=== PATIENT | male | born 1960 | race Caucasian/White ===

== ENCOUNTER 2019-03-22 08:07 | Day surgery (SDC) | payer BC ==
[~2019-03-22] VITALS: Ht 165.1 cm; Wt 93.0 kg
[~2019-03-22 08:07] MED LIST: ACET325T14 PO; IBUP200T64 PO; MULT-658 PO; ZOLP10TA PO; vitamin c PO
[2019-03-22] MEDS ORDERED: MIDAZOLAM 1 MG/ML, 2ML ONE (09:03)
[2019-03-22] MEDS ORDERED: FENTANYL PF 250 MCG/5ML ONE ×3 (09:04→12:16)
[2019-03-22] MEDS ORDERED: LACTATED RINGERS 1,000 ML IV SCH (09:04)
[2019-03-22] MEDS ORDERED: ROCURONIUM 10MG/ML,5ML ONE ×2 (09:07→12:31)
[2019-03-22] MEDS ORDERED: PROPOFOL 10 MG/ML, 20ML ONE (09:07)
[2019-03-22] MEDS ORDERED: GLYCOPYRROLATE 0.2MG/1ML, 5ML ONE (09:07)
[2019-03-22] MEDS ORDERED: NEOSTIGMINE 1 MG/ML, 10ML ONE (09:07)
[2019-03-22] MEDS ORDERED: CEFAZOLIN 1,000 MG ONE (09:07)
[2019-03-22 09:09] VITALS: BP 145/84
[2019-03-22] MEDS ORDERED: ACETAMINOPHEN 500 MG TABLET PO ONE (09:30)
[2019-03-22] MEDS ORDERED: GABAPENTIN 300 MG CAPSULE PO ONE (09:30)
[2019-03-22] MEDS ORDERED: BUPIVACAINE/PF 0.5% ONE (10:22)
[2019-03-22] MEDS ORDERED: EPINEPHRINE 1 MG/ML, 1ML ONE (10:22)
[2019-03-22] MEDS ORDERED: ROPIvacaine/PF 0.2%, 20 ML ONE ×3 (10:47)
[2019-03-22] MEDS ORDERED: hydrALAzine 20 MG/ML, 1ML IV PRN (11:00)
[2019-03-22] MEDS ORDERED: ONDANSETRON 2MG/ML, 2ML IV PRN (11:00)
[2019-03-22] MEDS ORDERED: OXYcodone 5 MG/5 ML ORAL.SOL UDC PO PRN (11:00)
[2019-03-22] MEDS ORDERED: MORPHINE SULFATE 4 MG/ML, 1ML IVPush PRN (11:00)
[2019-03-22] MEDS ORDERED: LABETALOL 5MG/ML, 20ML IV PRN (11:00)
[2019-03-22] MEDS ORDERED: MEPERIDINE/PF 25MG/ML,1ML IVPush PRN (11:00)
[2019-03-22] MEDS ORDERED: SUGAMMADEX 200 MG/2 ML IVPush ONE (12:51)
[2019-03-22] MEDS ORDERED: FENTANYL PF 100 MCG/2ML ONE (13:27)
[2019-03-22] MEDS ORDERED: OXYcodone 5 MG/5 ML ORAL.SOL UDC ONE (13:28)
[2019-03-22] MEDS: FENTANYL PF 100 MCG/2ML IV PRN ×2 (13:29→13:41)
[2019-03-22] MEDS ORDERED: HYDROmorphone 1 MG/ML, 1ML VIAL ONE ×2 (13:41→14:03)
[2019-03-22] MEDS: HYDROmorphone 2 MG/ML, 1ML IVPush PRN ×4 (13:46→14:17)
[2019-03-22] MEDS ORDERED: KETOROLAC 30 MG/1 ML IVPush SCH (18:00)
[2019-03-22] MEDS ORDERED: KETOROLAC 30 MG/1 ML ONE (18:06)
== END 2019-03-22 18:22 | disposition home or self-care (01) ==
LOC: OUT 08:07
PROVIDERS: ATTEND Surgery
DX: K43.2 Incisional hernia without obstruction or gangrene (principal); K42.9 Umbilical hernia without obstruction or gangrene; Z79.899 Other long term (current) drug therapy; Z90.49 Acquired absence of other specified parts of digestive tract
CPT/HCPCS: 15734; 49656; 64488; C1781; J0690; J1170; J1885; J2250; J2704; J2710; J2795; J3010; J7120; S2900; J0171